=== PATIENT | male | born 1960 | race Caucasian/White ===

== ENCOUNTER 2022-03-29 23:59 | Inpatient (IN) | payer OTHER, SELFPAY ==
[2022-03-30 00:03] VITALS: BP 167/111; PULSE 101; RESP 18; TEMP 37.1; O2SAT 97; BMI 24.4
--- NOTE | 2022-03-30 00:09 | W.ED.PSYCHS ---
HPI - Psych General: Chief Complaint: Psychiatric Symptoms Stated Complaint: SI/ETOH Time Seen by Provider: 03/30/22 00:00 Source: patient and EMS Mode of arrival: EMS Limitations: no limitations History of Present Illness: 62-year-old male who problematic is here with EMS for suicidal. Patient states that he did have a gun he pulled out a safety that he thought was a little put his chest and pulled the trigger that was unloaded. [facility] is [facility] denied he has been drinking he called helpline because he states that he just no longer wants to live anymore. He is extremely depressed here. He still has a plan of shooting himself. Associated symptoms: Reports depression and suicidal ideation Review of Systems Const: Denies: fever(s), chills, body aches or change in appetite Eyes: Denies: blurry vision or eye discomfort ENMT: Denies: throat pain or dental pain Card: Denies: chest pain Resp: Denies: dyspnea GI: Denies: abdominal pain, nausea, vomiting or diarrhea : Denies: dysuria Musc: Denies: neck pain or back pain Skin/Breast: Denies: rash Neuro: Denies: headache(s) Psych: Reports: depression and suicidal ideation Seven/Lymph: Denies: easy bruising All/Imm: Denies: urticaria PFSH ED PFSH: Social History Alcohol intake: current Physical Exam Const: COMMON NORMALS: no acute distress, patient oriented x3 and healthy appearing HENMT: COMMON NORMALS: normocephalic and atraumatic HEAD & SCALP: normocephalic and atraumatic Eye: COMMON NORMALS: Equal, round and reactive pupils present and EOMs intact bilaterally PUPIL: Yes Equal, round and reactive pupils present Neck/C-Spine: COMMON NORMALS: full ROM and supple Chest: COMMONS NORMALS: normal inspection of the chest and normal palpation of entire chest wall Resp: COMMON NORMALS: normal respiratory effort, No retractions, No use of accessory muscles and clear to auscultation bilaterally AUSCULTATION: clear to auscultation bilaterally Cardio: COMMON NORMALS: regular rate, regular rhythm and No murmurs present (Cardio) RATE: regular rate RHYTHM: regular rhythm GI: COMMON NORMALS: Normal to inspection, nondistended, normoactive bowel sounds present, Soft to palpation, non-tender and no masses PALPATION: Yes Soft to palpation Extremity: COMMON NORMALS: normal to inspection and full ROM Neuro: COMMON NORMALS: patient oriented x3, moves all extremities and no focal motor deficits Psych: COMMON NORMALS: mental status grossly normal, Normal thought process present and cooperative THOUGHT PROCESS: Normal thought process present THOUGHT CONTENT: Yes Suicidality present Skin: COMMON NORMALS: no rashes or lesions noted and no wounds GENERAL SKIN EXAM: no rashes or lesions noted Course Vital Signs: Vital signs: Vital Signs Temperature 98.7 F 03/30/22 00:03 Pulse Rate 101 H 03/30/22 00:03 Respiratory Rate 18 03/30/22 00:03 Blood Pressure 167/111 03/30/22 00:03 Pulse Oximetry 97 03/30/22 00:03 [facility] - Psych Medical Decision Making Patient presents here with suicidal ideation with a plan he was placed on a 96-hour hold he is medically cleared I spoke to the psychiatrist Dr. Mcdowell and will admit. Lab Data : 03/30/22 00:15 03/30/22 00:15 Laboratory Results WBC 8.0 10^3/uL (4.0-10.0) 03/30/22 00:15 RBC 5.13 10^6/uL (4.1-5.3) 03/30/22 00:15 Hgb 15.9 g/dL (11.7-16.6) 03/30/22 00:15 Hct 47.9 % (42.0-52.0) 03/30/22 00:15 MCV 93.4 fl (80-94) 03/30/22 00:15 MCH 31.0 pg (28.0-34.0) 03/30/22 00:15 MCHC 33.2 g/dL (30.0-36.0) 03/30/22 00:15 RDW 15.2 % (12.1-15.1) H 03/30/22 00:15 Plt Count 254 10^3/cmm (130-400) 03/30/22 00:15 MPV 10.2 fL (7.4-10.4) 03/30/22 00:15 Neut % (Auto) 44.2 % 03/30/22 00:15 Lymph % (Auto) 45.7 % 03/30/22 00:15 [place] % (Auto) 7.1 % 03/30/22 00:15 Eos % (Auto) 1.8 % 03/30/22 00:15 Baso % (Auto) 0.8 % 03/30/22 00:15 Neut # (Auto) 3.54 10^3/uL (1.8-7.7) 03/30/22 00:15 Lymph # (Auto) 3.7 10^3/uL (0.8-4.8) 03/30/22 00:15 [place] # (Auto) 0.6 10^3/uL (0.2-0.9) 03/30/22 00:15 Eos # (Auto) 0.1 10^3/uL (0.0-0.8) 03/30/22 00:15 Baso # (Auto) 0.1 10^3/uL (0.0-0.1) 03/30/22 00:15 Nucleated RBC % (auto) 0 % 03/30/22 00:15 Nucleated RBCs # 0.0 /100WBC 03/30/22 00:15 Sodium 145 mmol/L (136-145) 03/30/22 00:15 Potassium 3.3 mmol/L (3.5-5.1) L 03/30/22 00:15 Chloride 111 mmol/L (98-107) H 03/30/22 00:15 Carbon Dioxide 21 mmol/L (22-29) L 03/30/22 00:15 Anion Gap 16.3 (5-19) 03/30/22 00:15 BUN 10 mg/dL (8-23) 03/30/22 00:15 Creatinine 1.3 mg/dL (0.7-1.2) H 03/30/22 00:15 GFR Calculation 56.3 mL/min (90-130) L 03/30/22 00:15 Glucose 148 mg/dL (65-115) H 03/30/22 00:15 Calculated Osmolality 302 mOsm/kg (285-295) H 03/30/22 00:15 Calcium 9.1 mg/dL (8.5-10.5) 03/30/22 00:15 Total Bilirubin 0.2 mg/dL (0.15-1.2) 03/30/22 00:15 AST 28 U/L (0-40) 03/30/22 00:15 ALT 28 U/L (0-41) 03/30/22 00:15 Alkaline Phosphatase 131 U/L (40-130) H 03/30/22 00:15 Total Protein 7.9 g/dL (6.6-8.7) 03/30/22 00:15 Albumin 4.3 g/dL (3.5-5.2) 03/30/22 00:15 Globulin 3.6 g/dL (1.3-4.6) 03/30/22 00:15 Salicylates < 0.3 mg/dL (3-10) L 03/30/22 00:15 Urine Opiates Screen Negative ng/mL (Negative) 03/30/22 01:59 Acetaminophen < 5.0 ug/mL (10-30) L 03/30/22 00:15 Ur Barbiturates Screen Negative ng/mL (Negative) 03/30/22 01:59 Ur Phencyclidine Scrn Negative ng/mL (Negative) 03/30/22 01:59 Ur Amphetamines Screen Negative ng/mL (Negative) 03/30/22 01:59 U Benzodiazepines Scrn Negative ng/mL (Negative) 03/30/22 01:59 Urine Cocaine Screen Negative ng/mL (Negative) 03/30/22 01:59 U Marijuana (THC) Screen Negative ng/mL (Negative) 03/30/22 01:59 Ethyl Alcohol 257 mg/dL (0-10) H 03/30/22 00:15 Discharge Plan Discharge Patient Disposition: Admitted As Inpatient Clinical Impression: Suicidal ideation Coding Level of Care Code ED Distribution Systems Serviceperson for Brad Fwd Exam Comprehensive
[2022-03-30 00:50] LABS: Basophils # 0.1 10^3/uL (0.0-0.1); Basophils % 0.8 %; Eosinophils # 0.1 10^3/uL (0.0-0.8); Eosinophils % 1.8 %; Hematocrit 47.9 % (42.0-52.0); Hemoglobin 15.9 g/dL (11.7-16.6); Lymphocytes # 3.7 10^3/uL (0.8-4.8); Lymphocytes % 45.7 %; Mean Corpuscular HGB Conc 33.2 g/dL (30.0-36.0); Mean Corpuscular Volume 93.4 fl (80-94); Mean Platelet Volume 10.2 fL (7.4-10.4); Monocytes # 0.6 10^3/uL (0.2-0.9); Monocytes % 7.1 %; Neutrophils # 3.54 10^3/uL (1.8-7.7); Neutrophils % 44.2 %; Nucleated Red Blood Cells % 0 %; Platelet Count 254 10^3/cmm (130-400); Red Blood Count 5.13 10^6/uL (4.1-5.3); Red Cell Distribution Width 15.2 % (12.1-15.1)
[2022-03-30 01:00] LABS: Alanine Aminotransferase 28 U/L (0-41); Albumin Level 4.3 g/dL (3.5-5.2); Alcohol Level 257 mg/dL (0-10); Alkaline Phosphatase 131 U/L (40-130); Anion Gap 16.3 (5-19); Aspartate Amino Transferase 28 U/L (0-40); Blood Urea Nitrogen 10 mg/dL (8-23); Calcium 9.1 mg/dL (8.5-10.5); Carbon Dioxide 21 mmol/L (22-29); Chloride 111 mmol/L (98-107); Globulin 3.6 g/dL (1.3-4.6); Glomerular Filtration Rate 56.3 mL/min (90-130); Glucose 148 mg/dL (65-115); Osmolality Calculated 302 mOsm/kg (285-295); Potassium 3.3 mmol/L (3.5-5.1); Sodium 145 mmol/L (136-145); Total Bilirubin 0.2 mg/dL (0.15-1.2); Total Protein 7.9 g/dL (6.6-8.7)
[2022-03-30 01:14] LABS: Acetaminophen < 5.0 ug/mL (10-30); Salicylate < 0.3 mg/dL (3-10)
[2022-03-30 02:13] LABS: Amphetamines Screen Urine Negative (Negative); Barbiturates Screen Urine Negative (Negative); Benzodiazepines Screen Urine Negative (Negative); Cocaine Screen Urine Negative (Negative); Opiate Screen Urine Negative (Negative); PCP Screen Urine Negative (Negative); THC Screen Urine Negative (Negative)
[2022-03-30] MEDS: topiramate 25 mg Tablet PO (09:08)
[2022-03-30 09:49] LABS: Alcohol Level 37 mg/dL (0-10)
--- NOTE | 2022-03-30 12:43 | ECG_ITS ---
[facility] Test Date: 2022-03-30 Pat Name: Donis Yun Department: Room: ED Gender: Male Director Of Consumer Affairs: : 1960 Requested By: Yosef Tristan Order Number: [id number] Ruperto MD: Marco Sheikh M.D. Measurements Intervals [place] Rate: 103 P: 7 FL: 180 QRS: 67 QRSD: 108 T: 26 QT: 357 QTc: 468 Interpretive Statements SINUS TACHYCARDIA ABNORMAL RHYTHM ECG No previous ECG available for comparison Electronically Signed On 03-30-2022 19:33:24 CDT by Marco Sheikh M.D. [id number]
[2022-03-30 12:58] VITALS: BP 158/106; PULSE 102; RESP 16; TEMP 37.2; O2SAT 95
[2022-03-30] MEDS: acetaminophen 325 mg Tablet 650 MG PO (18:14)
--- NOTE | 2022-03-30 19:12 | PC.NURSE ---
Admission Assessment Patient states he called the hotline last night after he had put a gun to his chest and pulled the trigger after he was drunk. He stated it was not loaded so that's why it didn't kill him. He said he stores his ammo separately and it usually takes at least 30 minutes to open it and this time it took about 1 so he started loading it. He states he fell asleep and when he woke up he realized he needed to call someone. Patient states he is close with his son and that his son is aware he needs to come remove his guns from his house. Patient denies that he is having SI/HI currently. He states he occasionally hears footsteps and knocking, but knows they are not real. Denies VH. Patient states he did attempt suicide back in November or December by the same method. He says he thinks about suicide every day and that it comes and goes. Often the thoughts are of him wanting to be killed by a bullet or vaporized by a bomb overseas. He states he feels he has had these thoughts each time because small problems in his life and anger build slowly and then explode in this manner. Patient is calm and cooperative.
[2022-03-30] MEDS: amitriptyline 25 mg Tablet 100 MG PO (20:34)
[2022-03-30 21:06] VITALS: BP 164/104; PULSE 102; RESP 17; TEMP 36.7; O2SAT 94
[2022-03-30] MEDS: amlodipine 5 mg Tablet PO (21:47)
[2022-03-30] MEDS: metoprolol tartrate 25 mg Tablet PO (21:47)
[2022-03-30 22:00] VITALS: BP 164/104; PULSE 102; RESP 17; TEMP 36.7; O2SAT 94
[2022-03-31 06:00] VITALS: BP 139/95; PULSE 56; RESP 16; TEMP 36.7; O2SAT 95
[2022-03-31] MEDS: topiramate 25 mg Tablet 50 MG PO ×2 (09:36→20:21)
[2022-03-31] MEDS: metoprolol tartrate 25 mg Tablet PO ×2 (09:36→20:23)
--- NOTE | 2022-03-31 09:37 | PC.NURSE ---
refused scheduled Tricor, Norvasc, and Atorvastatin...pt states he takes them in the evening, not the morning time. told patient that I would clarify with Dr. Mcdowell to see if we could get the meds switched from daily to evening.
--- NOTE | 2022-03-31 10:18 | P.NPUHP_ITS ---
Providers/Chief Complaint Admitting Physician: Bryant Mcdowell MD Chief Complaint: SI/ETOH HPI NPU History of Present Illness Donis Yun is a 62 year old male who presented to the Emergency Department with the following report: Chief Complaint: Psychiatric Symptoms Stated Complaint: SI/ETOH Time Seen by Provider: 03/30/22 00:00 Source: patient and EMS Mode of arrival: EMS Limitations: no limitations History of Present Illness: 62-year-old male who problematic is here with EMS for suicidal. Patient states that he did have a gun he pulled out a safety that he thought was a little put his chest and pulled the trigger that was unloaded. He is [facility] denied he has been drinking he called helpline because he states that he just no longer wants to live anymore. He is extremely depressed here. He still has a plan of shooting himself. Associated symptoms: Reports depression and suicidal ideation. He was admitted to the neuropsychiatric unit for definitive treatment of those issues. He is currently prescribed Ativan for his tremors. He reports he was having a bad moment and had tried to call a [facility] the [facility] which [facility] [place] [facility]. He has never been psychiatrically hospitalized, has received outpatient services through the [facility] and has been on an antidepressant in the past. He reports a pack of cigarettes a day, alcohol daily a big bottle every 2 to 3 days on good times or daily in bad times, denies marijuana or any other illicit drug use. He has never had drug and alcohol treatment, DUIs or drug and alcohol related charges. He has been in this area since January at [place] [facility] which he confirmed over the phone and was brought into the hospital by the ambulance. He endorses he got mad in the emergency room due to the process of having to put the scrubs on and remove his belt and was having trouble understanding things. He reports he has been suicidal and at one point had been drinking when he unlocked the gun safe and tried to commit suicide but the guns were empty and he later got distracted and woke up with an empty pistol in his hand. He told his son to remove the guns from the house when he had come down to [place] [facility] and his brother helped. He endorses depression first began in the 80s for him with low mood, feeling helpless, hopeless, worthless, loss of motivation, problems with sleeping that are also related to his migraines he gets from a blow to the back of his head, suicidal ideation and above mentioned suicide attempt. He denies self-injurious behaviors. He reports it has been around 10 years since he has taken medications as he endorses not really liking to take medication. He reports that the doctor he had been seeing back at this time was promoted and so her patient?s were put on another doctor. When he saw this new doctor, she talked with him for a short time before telling him that he did not need to make any more appointments with her. Psychiatric History: As above. Substance Abuse History: As above. Family History: He denies any mental health issues on either side of the family, addiction issues on his father?s side of the family and denies suicidal attempts or completions on either side of the family. Developmental History: He denies any issues with his or , learned to walk and talk and met his developmental milestones on time and denies any need for speech therapy, learning support, emotional support or special education classes. Psychosocial History: He reports his parents were together and remained together. He has 3 siblings of which his is the oldest who are products of the same union and neither of his parents had any additional children. He described his childhood as ?everyday m iddle [place]? and denies any emotional, physical or sexual abuse. He denies C[employer] involvement. He reports other traumatic events both in the service and afterwards and reports its constantly in the back of his mind. He graduated high school. He endorses being heterosexual with his longest relationship being 18 years. He has been 4 times and 4 times, 2 possibly 3 biological children, ages 42, 40 and 34, has been in the from 1980 to 1984, and endorses being a taoism. He lives in a trailer currently but lives the rest of his time in his house in [place]. Legal History: Denied. Medical History: He denies any known allergies to medications. He has high cholesterol and high blood pressure. He has epididymitis. Meds NPU Home Medications Medication Instructions Recorded Confirmed Last Taken Type amitriptyline 50 mg tablet 100 mg PO BEDTIME 03/30/22 03/30/22 Unknown History amlodipine 5 mg tablet 5 mg PO DAILY 03/30/22 03/30/22 Unknown History fenofibrate 160 mg tablet 160 mg PO DAILY 03/30/22 03/30/22 Unknown History metoprolol tartrate 25 mg tablet 25 mg PO BID 03/30/22 03/30/22 Unknown History rosuvastatin 20 mg tablet 20 mg PO DAILY 03/30/22 03/30/22 Unknown History topiramate 50 mg tablet 50 mg PO BID 03/30/22 03/30/22 Unknown History Allergies Allergy/AdvReac Type Severity Reaction Status Date / Time gabapentin Allergy Severe ADR-Depress Verified 03/30/22 09:10 ion ibuprofen Allergy Severe due to Verified 03/30/22 18:40 kidney function PFSH NPU PFSH: Social History Alcohol intake: current Mental Status Exam MSE Comments: This is a well nourished, well developed older white man in hospital scrubs with adequate grooming and eye contact. No abnormal movements except for mild psychomotor retardation. Cooperative with exam in mild distress. Speech was normal rate and volume. Mood described as pretty good, affect is euthymic. Thought process, organized. Thought content: patient denies suicidal or homicidal ideation, no delusions reported or noted and denies auditory or visual hallucinations but reports having sleep paralysis and hearing people walking and knocking on his door when he is going to sleep or waking up. Atte ntion and concentration are intact and memory appeared reliable but none were formally tested. He is alert and oriented three times. Insight and judgment are fair. Impulse control is limited versus impaired. Vitals/I&O/Wt Last Vital Signs Temp 98.0 F 03/30/22 22:00 Pulse 102 H 03/30/22 22:00 Resp 17 03/30/22 22:00 BP 164/104 03/30/22 22:00 Pulse Ox 94 03/30/22 22:00 O2 Del Method 03/30/22 17:45 Weight last 48 hrs Weight 81.647 kg Data NPU : 03/30/22 00:15 03/30/22 00:15 A&P Assessment and plan (1) Suicidal ideation: (2) Major depressive disorder, recurrent: Plan This is a 62 year old man with a history of trauma, depression and genetic loading for addiction issues who presents after a recent period of depression reporting he had called for help but had some confusion after when the ambulance came but open to medications at this time. 1. Start Prozac 20 mg poq daily 2. Encourage individual, group and milieu therapy 3. Continue q-15 minute check for safety 4. Recommend sober living treatment at the highest level of care to which the patient is willing to commit. . Involuntary Hold Information 96 Hour Hold: 96 Hour Involuntary Admission: Yes 96 Hour Hold Ending Date: 04/05/22 96 Hour Hold Ending Time: 17:25 Attestations NPU Medical Necessity Statement*: Inpatient hospitalization is medically necessary and the clinically appropriate intervention at this time. We will monitor medications and make changes as indicated. Patient will be in the hospital for over two midnights. Likely length of stay is three to five days Coding Level of Care Code Acute Hand Fabric Cutter for Brad Fwd Diagnoses Suicidal ideation R45.851 Major depressive disorder, recurrent F33.9
[2022-03-31 14:00] VITALS: BP 154/103; PULSE 90; RESP 16; TEMP 525.5; TEMP 978; O2SAT 94
[2022-03-31] MEDS: escitalopram 10 mg Tablet PO (14:40)
[2022-03-31] MEDS: atorvastatin 40 mg Tablet 80 MG PO (20:20)
[2022-03-31] MEDS: amitriptyline 25 mg Tablet 100 MG PO (20:20)
[2022-03-31] MEDS: amlodipine 5 mg Tablet PO (20:22)
[2022-03-31] MEDS: fenofibrate 145 mg Tablet PO (20:23)
[2022-03-31 20:27] VITALS: BP 142/98; PULSE 99; RESP 18; TEMP 36.6; O2SAT 95
[2022-04-01 06:00] VITALS: BP 111/75; PULSE 70; RESP 18; TEMP 36.6; O2SAT 97
[2022-04-01] MEDS: escitalopram 10 mg Tablet PO (08:24)
[2022-04-01] MEDS: topiramate 25 mg Tablet 50 MG PO ×2 (08:24→20:30)
[2022-04-01] MEDS: metoprolol tartrate 25 mg Tablet PO ×2 (08:24→20:30)
[2022-04-01 14:00] VITALS: BP 145/86; PULSE 93; RESP 18; TEMP 36.6; O2SAT 97
--- NOTE | 2022-04-01 15:12 | W.PM.NPUPNS ---
Subjective NPU Subjective: Patient resents today reporting that he feels about as good as he felt in some time. He reports medications been very helpful. He discussed that his sister called looking for him. She reported that it was good that he was here and he needed to be here. We reviewed whether all the guns were in fact back at home back at home in [facility]. He discussed the fact that the placer miner had been at his place and feeling certain they would have canvassed the place Mental Status Exam MSE Comments: This is a well nourished, well developed older white man in hospital scrubs with adequate grooming and eye contact. No abnormal movements. Cooperative with exam in no acute distress. Speech was normal rate and volume. Mood described as really good, affect is euthymic. Thought process, organized. Thought content: patient denies suicidal or homicidal ideation, no delusions reported or noted and denies auditory or visual hallucinations. Attention and concentration are intact and memory appeared reliable but none were formally tested. He is alert and oriented three times. Insight and judgment are fair. Impulse control is limited. Vitals/I&O/Wt Last Vital Signs Temp 98.3 F 04/01/22 21:30 Pulse 102 H 04/01/22 21:30 Resp 18 04/01/22 21:30 BP 142/95 04/01/22 21:30 Pulse Ox 92 04/01/22 21:30 O2 Del Method 04/01/22 14:00 Weight last 48 hrs Weight 90.718 kg Data NPU : 03/30/22 00:15 03/30/22 00:15 A&P Assessment and plan (1) Suicidal ideation: (2) Major depressive disorder, recurrent: Plan This is a 62 year old man with a history of trauma, depression and genetic loading for addiction issues who presents after a recent period of depression reporting he had called for help but had some confusion after when the ambulance came but open to medications at this time. 1. Started Lexapro 10 mg p.o. every morning. 2. Encourage individual, group and milieu therapy 3. Continue q-15 minute check for safety 4. Recommend sober living treatment at the highest level of care to which the patient is willing to commit. . Involuntary Hold Information 96 Hour Hold: 96 Hour Involuntary Admission: Yes 96 Hour Hold Ending Date: 04/05/22 96 Hour Hold Ending Time: 17:25 Attestations NPU Medical Necessity Statement*: Inpatient hospitalization is medically necessary and the clinically appropriate intervention at this time. We will monitor medications and make changes as indicated. Likely length of stay is 1-3 days Coding Level of Care Code Acute Application Development Director for g Fwd Diagnoses Suicidal ideation R45.851 Major depressive disorder, recurrent F33.9
[2022-04-01] MEDS: fenofibrate 145 mg Tablet PO (20:26)
[2022-04-01] MEDS: atorvastatin 40 mg Tablet 80 MG PO (20:26)
[2022-04-01] MEDS: amlodipine 5 mg Tablet PO (20:27)
[2022-04-01] MEDS: amitriptyline 25 mg Tablet 100 MG PO (20:27)
[2022-04-01 21:30] VITALS: BP 142/95; PULSE 102; RESP 18; TEMP 36.8; O2SAT 92
[2022-04-02 06:00] VITALS: BP 110/73; PULSE 70; RESP 16; TEMP 36.6; O2SAT 93
[2022-04-02] MEDS: escitalopram 10 mg Tablet PO (09:11)
[2022-04-02] MEDS: topiramate 25 mg Tablet 50 MG PO ×2 (09:11→20:36)
[2022-04-02] MEDS: metoprolol tartrate 25 mg Tablet PO (09:11)
[2022-04-02 14:00] VITALS: BP 124/89; PULSE 83; RESP 15; TEMP 36.4; O2SAT 95
--- NOTE | 2022-04-02 16:05 | P.NPUPN_ITS ---
Subjective NPU Subjective: Patient presents today reporting that he is doing significantly better with the medication however some inconsistencies in either his story about the guns or the treatment he is understanding about his stories about the guns. We discussed needing to have clarity about this prior to discharge. Otherwise reports he is eating and sleeping better and denies any issues. Mental Status Exam MSE Comments: This is a well nourished, well developed older white man in hospital scrubs with adequate grooming and eye contact. No abnormal movements. Cooperative with exam in no acute distress. Speech was normal rate and volume. Mood described as good, affect is euthymic. Thought process, organized. Thought content: patient denies suicidal or homicidal ideation, no delusions reported or noted and denies auditory or visual hallucinations. Attention and concentration are intact and memory appeared reliable but none were formally tested. He is alert and oriented three times. Insight and judgment are fair. Impulse control is limited. Vitals/I&O/Wt Last Vital Signs Temp 97.8 F 04/02/22 20:39 Pulse 88 04/02/22 20:39 Resp 17 04/02/22 20:39 BP 104/75 04/02/22 20:39 Pulse Ox 96 04/02/22 20:39 O2 Del Method 04/01/22 14:00 Data NPU : 03/30/22 00:15 03/30/22 00:15 A&P Assessment and plan (1) Suicidal ideation: (2) Major depressive disorder, recurrent: Plan This is a 62 year old man with a history of trauma, depression and genetic loading for addiction issues who presents after a recent period of depression reporting he had called for help but had some confusion after when the ambulance came but open to medications at this time. 1. Started Lexapro 10 mg p.o. every morning. 2. Encourage individual, group and milieu therapy 3. Continue q-15 minute check for safety 4. Recommend sober living treatment at the highest level of care to which the patient is willing to commit. 5. Obtain clarity about his access to weapons prior to consideration of discharge. Involuntary Hold Information 96 Hour Hold: 96 Hour Involuntary Admission: Yes 96 Hour Hold Ending Date: 04/05/22 96 Hour Hold Ending Time: 17:25 Attestations NPU Medical Necessity Statement*: Inpatient hospitalization is medically necessary and the clinically appropriate intervention at this time. We will monitor medications and make changes as indicated. Likely length of stay is 1-3 days Coding Level of Care Code Acute Director Of Patient Financial Services for g Fwd Diagnoses Suicidal ideation R45.851 Major depressive disorder, recurrent F33.9
[2022-04-02] MEDS: atorvastatin 40 mg Tablet 80 MG PO (20:34)
[2022-04-02] MEDS: amitriptyline 25 mg Tablet 100 MG PO (20:34)
[2022-04-02] MEDS: fenofibrate 145 mg Tablet PO (20:35)
[2022-04-02 20:39] VITALS: BP 104/75; PULSE 88; RESP 17; TEMP 36.6; O2SAT 96
[2022-04-03 06:00] VITALS: BP 133/91; PULSE 97; RESP 17; TEMP 36.4; O2SAT 95
[2022-04-03] MEDS: topiramate 25 mg Tablet 50 MG PO (08:02)
[2022-04-03] MEDS: metoprolol tartrate 25 mg Tablet PO (08:03)
[2022-04-03] MEDS: escitalopram 10 mg Tablet PO (08:03)
--- NOTE | 2022-04-03 12:41 | P.NPUDS_ITS ---
Diagnoses at Discharge Discharge Diagnosis (1) Suicidal ideation: Status: Resolved (2) Major depressive disorder, recurrent: Status: Acute Reason for Visit Reason for Visit: SI/ETOH Brief History: History of Present Illness Donis Yun is a 62 year old male who presented to the Emergency Department with the following report: Chief Complaint: Psychiatric Symptoms Stated Complaint: SI/ETOH Time Seen by Provider: 03/30/22 00:00 Source: patient and EMS Mode of arrival: EMS Limitations: no limitations History of Present Illness: 62-year-old male who problematic is here with EMS for suicidal. Patient states that he did have a gun he pulled out a safety that he thought was a little put his chest and pulled the trigger that was unloaded. He is at [facility] denied he has been drinking he called helpline because he states that he just no longer wants to live anymore. He is extremely depressed here. He still has a plan of shooting himself. Associated symptoms: Reports depression and suicidal ideation. He was admitted to the neuropsychiatric unit for definitive treatment of those issues. He is currently prescribed Ativan for his tremors. He reports he was having a bad moment and had tried to call a woman at the [facility] which brought the ambulance to [facility]. He has never been psychiatrically hospitalized, has received outpatient services through the [facility] and has been on an antidepressant in the past. He reports a pack of cigarettes a day, alcohol daily a big bottle every 2 to 3 days on good times or daily in bad times, denies marijuana or any other illicit drug use. He has never had drug and alcohol treatment, DUIs or drug and alcohol related charges. He has been in this area since January at [facility] which he confirmed over the phone and was brought into the hospital by the ambulance. He endorses he got mad in the emergency room due to the process of having to put the scrubs on and remove his belt and was having trouble understanding things. He reports he has been suicidal and at one point had been drinking when he unlocked the gun safe and tried to commit suicide but the guns were empty and he later got distracted and woke up with an empty pistol in his hand. He told his son to remove the guns from the house when he had come down to [facility] and his brother helped. He endorses depression first began in the 80s for him with low mood, feeling helpless, hopeless, worthless, loss of motivation, problems with sleeping that are also related to his migraines he gets from a blow to the back of his head, suicidal ideation and above mentioned suicide attempt. He denies self-injurious behaviors. He reports it has been around 10 years since he has taken medications as he endorses not really liking to take medication. He reports that the doctor he had been seeing back at this time was promoted and so her patient?s were put on another doctor. When he saw this new doctor, she talked with him for a short time before telling him that he did not need to make any more appointments with her. Psychiatric History: As above. Substance Abuse History: As above. Family History: He denies any mental health issues on either side of the family, addiction issues on his father?s side of the family and denies suicidal attempts or completions on either side of the family. Developmental History: He denies any issues with his or , learned to walk and talk and met his developmental milestones on time and denies any need for speech therapy, learning support, emotional support or special education classes. Psychosocial History: He reports his parents were together and remained together. He has 3 siblings of which his is the oldest who are products of the same union and neither of his parents had any additional children. He described his childhood as ?everyday middle [place]? and denies any emotional, physical or sexual abuse. He denies [employer] involvement. He reports other traumatic events both in the service and afterwards and reports its constantly in the back of his mind. He graduated high school. He endorses being heterosexual with his longest relationship being 18 years. He has been 4 times and 4 times, 2 possibly 3 biological children, ages 42, 40 and 34, has been in the from 1980 to 1984, and endorses being a spiritism. He lives in a trailer currently but lives the rest of his time in his house in [place]. Legal History: Denied. Medical History: He denies any known allergies to medications. He has high cholesterol and high blood pressure. He has epididymitis. Hospital Course Hospital Course He slowly acclimated to the individual, group and milieu therapies provided. He was continued on his home medication and started on Lexapro 10 mg p.o. every morning. It became clear that he has had difficulties with a likely TBI in the past and worked with his family to ensure safe discharge planning and return to home. He had significant improvement during the stay and was able to contract for safety outside hospital prior to discharge. During the hospitalization, patient had routine laboratory studies which were within normal limits except for few outliers. Additionally there was a general medical evaluation which was also within normal limits and revealed no new acute processes. Discharge Summary: At the time of discharge, he denied psychosis or lethality. Mood and anxiety were well managed. Patient endorsed a plan to follow-up with the aftercare recommendations of the treatment team. Patient was evaluated and deemed to be absent credible lethality, and had achieved the maximum benefit from an inpatient hospitalization, so was discharged. Involuntary Hold Information 96 Hour Hold: 96 Hour Involuntary Admission: Yes 96 Hour Hold Ending Date: 04/05/22 96 Hour Hold Ending Time: 17:25 Mental Status Exam MSE Comments: This is a well nourished, well developed older white man in hospital scrubs with adequate grooming and eye contact. No abnormal movements. Cooperative with exam in no acute distress. Speech was normal rate and volume. Mood described as good, affect is euthymic. Thought process, organized. Thought content: patient denies suicidal or homicidal ideation, no delusions reported or noted and denies auditory or visual hallucinations. Attention and concentration are intact and memory appeared reliable but none were formally tested. He is alert and oriented three times. Insight and judgment are fair. Impulse control is limited, but improving. Discharge Data Studies Completed and Pending: Pending at discharge Category Date Time Status COVID [[facility] SARS -CoV-2 RNA] Routin e Lab 03/30/22 00:11 Ordered Laboratory Results WBC 8.0 10^3/uL (4.0- 10.0) 03/30/22 00:15 RBC 5.13 10^6/uL (4.1 -5.3) 03/30/22 00:15 Hgb 15.9 g/dL (11.7-1 6.6) 03/30/22 00:15 Hct 47.9 % (42.0-52.0 ) 03/30/22 00:15 MCV 93.4 fl (80-94) 03/30/22 00:15 MCH 31.0 pg (28.0-34. 0) 03/30/22 00:15 MCHC 33.2 g/dL (30.0-3 6.0) 03/30/22 00:15 RDW 15.2 % (12.1-15.1 ) H 03/30/22 00:15 Plt Count 254 10^3/cmm (130 -400) 03/30/22 00:15 MPV 10.2 fL (7.4-10.4 ) 03/30/22 00:15 Neut % (Auto) 44.2 % 03/30/22 00:15 Lymph % (Auto) 45.7 % 03/30/22 00:15 Hamilton % (Auto) 7.1 % 03/30/22 00:15 Eos % (Auto) 1.8 % 03/30/22 00:15 Baso % (Auto) 0.8 % 03/30/22 00:15 Neut # (Auto) 3.54 10^3/uL (1.8 -7.7) 03/30/22 00:15 Lymph # (Auto) 3.7 10^3/uL (0.8- 4.8) 03/30/22 00:15 Hamilton # (Auto) 0.6 10^3/uL (0.2- 0.9) 03/30/22 00:15 Eos # (Auto) 0.1 10^3/uL (0.0- 0.8) 03/30/22 00:15 Baso # (Auto) 0.1 10^3/uL (0.0- 0.1) 03/30/22 00:15 Nucleated RBC % (a uto) 0 % 03/30/22 00:15 Nucleated RBCs # 0.0 /100WBC 03/30/22 00:15 Sodium 145 mmol/L (136-1 45) 03/30/22 00:15 Potassium 3.3 mmol/L (3.5-5 .1) L 03/30/22 00:15 Chloride 111 mmol/L (98-10 7) H 03/30/22 00:15 Carbon Dioxide 21 mmol/L (22-29) L 03/30/22 00:15 Anion Gap 16.3 (5-19) 03/30/22 00:15 BUN 10 mg/dL (8-23) 03/30/22 00:15 Creatinine 1.3 mg/dL (0.7-1. 2) H 03/30/22 00:15 GFR Calculation 56.3 mL/min (90-1 30) L 03/30/22 00:15 Glucose 148 mg/dL (65-115 ) H 03/30/22 00:15 Calculated Osmolal ity 302 mOsm/kg (285- 295) H 03/30/22 00:15 Calcium 9.1 mg/dL (8.5-10 .5) 03/30/22 00:15 Total Bilirubin 0.2 mg/dL (0.15-1 .2) 03/30/22 00:15 AST 28 U/L (0-40) 03/30/22 00:15 ALT 28 U/L (0-41) 03/30/22 00:15 Alkaline Phosphata se 131 U/L (40-130) H 03/30/22 00:15 Total Protein 7.9 g/dL (6.6-8.7 ) 03/30/22 00:15 Albumin 4.3 g/dL (3.5-5.2 ) 03/30/22 00:15 Globulin 3.6 g/dL (1.3-4.6 ) 03/30/22 00:15 Salicylates < 0.3 mg/dL (3-10 ) L 03/30/22 00:15 Urine Opiates Scre en Negative ng/mL (N egative) 03/30/22 01:59 Acetaminophen < 5.0 ug/mL (10-3 0) L 03/30/22 00:15 Ur Barbiturates Sc reen Negative ng/mL (N egative) 03/30/22 01:59 Ur Phencyclidine S crn Negative ng/mL (N egative) 03/30/22 01:59 Ur Amphetamines Sc reen Negative ng/mL (N egative) 03/30/22 01:59 U Benzodiazepines Scrn Negative ng/mL (N egative) 03/30/22 01:59 Urine Cocaine Scre en Negative ng/mL (N egative) 03/30/22 01:59 U Marijuana (THC) Screen Negative ng/mL (N egative) 03/30/22 01:59 Ethyl Alcohol 37 mg/dL (0-10) H 03/30/22 09:08 Vitals: Last Vital Signs Temp 97.5 F L 04/03/22 06:00 Pulse 97 04/03/22 06:00 Resp 17 04/03/22 06:00 BP 133/91 04/03/22 06:00 Pulse Ox 95 04/03/22 06:00 O2 Del Method 04/01/22 14:00 Discharge Plan Discharge Patient Disposition: Home Condition: Stable Prescriptions: New escitalopram oxalate 10 mg Tablet 10 mg PO DAILY 30 Days Qty: 30 1RF Continued amlodipine 5 mg Tablet 5 mg PO DAILY amitriptyline 50 mg Tablet 100 mg PO BEDTIME rosuvastatin 20 mg Tablet 20 mg PO DAILY metoprolol tartrate 25 mg Tablet 25 mg PO BID topiramate 50 mg Tablet 50 mg PO BID fenofibrate 160 mg Tablet 160 mg PO DAILY Discharge Orders: Discharge Order (Routine); Ordered 04/03/22 Ordered By: Bryant Mcdowell Referrals: [facility] [Other] - 1-3 days (Call Kathy or Primary Nurse at for followup) Discharge Diet: Regular Discharge Activity: Resume usual activity Patient Instructions: Mood Disorders (GEN), Opioid Safety Discharge Attestations NPU Time Spent in Discharge Care*: less than 30 min Specific Discharge Activities: Specific discharge activities: educating patient, discussing with bilingual case manager/social workers/dc planners, documenting/other paperwork and evaluating patient/reviewing data Coding Level of Care Code Acute Chg FW DC note Diagnoses Suicidal ideation R45.851 Major depressive disorder, recurrent F33.9
--- NOTE | 2022-04-03 12:49 | DCPLANNER ---
IMM completed 04/03/22 @ 6651. Pt was given a copy of rights and he stated he understood rights.
[2022-04-03 12:51] VITALS: BP 133/91; PULSE 97; RESP 17; TEMP 36.4; O2SAT 95
== END 2022-04-03 14:14 | disposition home or self-care (01) | DRG 885 ==
LOC: ER 03-30 03:07 → NP 03-30 17:49
PROVIDERS: Family Medicine; Admitting Provider Psychiatry & Neurology Psychiatry; Emergency Provider Emergency Medicine; Visit Provider Psychiatry & Neurology Psychiatry
DX: F33.9 Major depressive disorder, recurrent, unspecified (principal); R45.851 Suicidal ideations; F10.229 Alcohol dependence with intoxication, unspecified; Y90.9 Presence of alcohol in blood, level not specified; F17.210 Nicotine dependence, cigarettes, uncomplicated
CPT/HCPCS: 80053; 80306; 80307; 85025; 93005; 97150; 97165; 99285